=== PATIENT | female | born 1960 | race Two or more races ===

== ENCOUNTER → 2017-11-09 | Outpatient (CLI) | payer OTHER ==
--- NOTE | 2017-11-09 13:52 | MR ---
EXAMINATION TYPE: MR ankle LT wo/w con DATE OF EXAM: 11/09/2017 COMPARISON: NONE HISTORY: Left foot pain with focal mass. CONTRAST: Standard multiplanar, multisequence MRI departmental protocol utilizing 9 mL intravenous Gadavist larissa olinium contrast. Imaging is performed of the ankle without and with IV contrast. FINDINGS: A vitamin E marker is placed at area of clinical concern lateral aspect seen best coronal i mage 11. Just inferior to this level there are multifocal and multi septated thin-walled cystic lesio ns of T1 hypointensity and T2 hyperintensity without suspicious enhancement or nodularity extending u p to lateral base of fifth metatarsal at area of PVA tendon insertion. Largest measured lesion is 1.7 x 1.6 cm axial image 5. Smaller lesions are seen at level of capsule. I strongly favor benign etiolo gy such as synovial or ganglion cysts. There is low intense 5 mm lesion in the medial talar dome presumed benign coronal image 15. The ankle mortise symmetry is preserved. Normal sinus tarsi fat is noted. Hindfoot articulations are maintaine d. There is small superior and moderate size inferior calcaneal spurs. There is some intermediate signal seen in plantar fascia with mild subcutaneous edema inferiorly, correlate for plantar fasciitis. PL tendon show intermediate signal as crossover medially along plantar surface. Calcaneal level is no sukhdeep. There is surrounding fluid with some horizontal increased signal seen best coronal image 9. Susp ect partial tear/tendinosis. Other flexor tendons are intact. Extensor tendons anteriorly are intact. Anterior tibiofibular and an terior talofibular ligaments are intact. Medial deltoid ligament is intact. IMPRESSION: Multifocal multi septated thin-walled subcutaneous cysts felt to be benign favoring synovial or gangl ion cysts corresponding to level of palpable abnormality. Suspect tendinosis/partial tear of the PL t endon mid to distal aspects correlate clinically. Possible mild plantar fasciitis, correlate clinica lly.
== END ==
LOC: RADMRIMAIN 10:49
PROVIDERS: ATTEND Orthopaedic Surgery
DX: D36.7 Benign neoplasm of other specified sites (principal); M79.672 Pain in left foot
CPT/HCPCS: 82565; 73723; A9581

== ENCOUNTER 2017-12-21 11:22 | Day surgery (SDC) | payer OTHER ==
[2017-12-12 10:00] VITALS: BMI 30.4
[~2017-12-21 11:22] MED LIST: DEXAMETHASONE SOD PHOSPHATE 10 MG/ML 1 ML VIAL IV ONE; HYDROmorphone 0.5 MG/0.5 ML SYRINGE IVP PRN; LACTATED RINGERS 1,000 ML IV SCH; LIDOCAINE 1% 20 ML VIAL (10MG/ML) FOR IV START INTRADERMA PRN; MIDAZOLAM 2 MG/2 ML VIAL IV PRN; ONDANSETRON 4 MG/2 ML VIAL IVP ONE; Pre Op ABX Message 1 EACH MISC MISCELLANE ONE; SCOPOLAMINE 1.5MG/72HR PATCH TRANSDERM ONE
[2017-12-21] MEDS ORDERED: ONDANSETRON 4 MG/2 ML VIAL ONE (11:42)
[2017-12-21 11:54] VITALS: RESP 16
[2017-12-21] MEDS ORDERED: fentaNYL (PF) 50 MCG/ML 2 ML AMP ONE ×2 (12:11→14:41)
[2017-12-21] MEDS ORDERED: fentaNYL (PF) 50 MCG/ML 2 ML AMP IV ONE (12:14)
[2017-12-21] MEDS ORDERED: LIDOCAINE 1% INJ 10MG/ML (20 ML MDV) ONE (14:41)
[2017-12-21] MEDS ORDERED: MIDAZOLAM 2 MG/2 ML VIAL ONE (14:41)
[2017-12-21] MEDS ORDERED: PROPOFOL 10 MG/ML 20 ML VIAL IV ONE (14:41)
[2017-12-21] MEDS ORDERED: ceFAZolin 1,000 MG/50 ML BAG (PMX) IVPB ONE (14:45)
[2017-12-21] MEDS ORDERED: ceFAZolin 1,000 MG in SODIUM CHLORIDE 0.9% 1,000 ML IRRIGATION ONE (14:48)
[2017-12-21] MEDS ORDERED: BUPIVACAINE (PF) 0.5% 30 ML VIAL SQ ONE (15:22)
[2017-12-21 15:45] VITALS: TEMP 97.5
--- NOTE | 2017-12-21 15:47 | P.OP ---
Date of Procedure: 12/21/17 Preoperative Diagnosis: 1. Left foot ganglion cyst 2. Left intractable plantar fasciitis 3. Left gastrocnemius equinus contracture Postoperative Diagnosis: Same Procedure(s) Performed: 1. Left gastrocnemius recession 2. Left ganglion cyst excision Anesthesia: DOMONIQUE Surgeon: Brian Alarcon Operations Intern #1: Giovanna Guerra Estimated Blood Loss (ml): 10 IV fluids (ml): 600 Pathology: other (Ganglion cyst sent for pathology) Condition: stable Disposition: PACU Indications for Procedure: The patient is a previously healthy 57-year-old female who presented to my office with a left foot mass. The patient had an MRI which showed the mass was a ganglion cyst. I outlined different treatment options including observation, aspiration, and surgical excision. After our discussion the patient requested a surgical excision. We discussed potential risks and complications including but not limited to risk of anesthesia, risk of superficial infection, risk of deep infection, risk of delayed wound healing, risk of wound necrosis, risk of damage to local blood vessels or nerves, risk of recurrence of the cyst, risk of malignancy, risk of need for further surgery, risk of DVT, risk of PE, and possibly loss of life or limb. After being scheduled for her ganglion cyst removal the patient return to the office to discuss treatment of her plantar heel pain. Her physical exam was consistent with plantar fasciitis. Her MRI showed signs of plantar fasciitis. She had a gastroc equinus contracture with Silfverskiold testing. The patient stated that she had over 1 year of nonsurgical treatment with continued pain. She requested surgery. Since the patient states that she has had over 12 months of aggressive nonsurgical treatment I think it is reasonable to proceed with surgery. We discussed both a gastroc recession and plantar fascia release. After outlining the results in the literature the patient shows a gastrocnemius recession. I discussed the potential risks and complications of a gastroc recession including but not limited to risk of anesthesia, risk of superficial infection, risk of deep infection, risk of delayed wound healing, risk of damage to the sural nerve, risk of decreased calf circumference, risk of continued pain, risk of worsening pain, risk of generalized satisfaction of surgery, risk of need for further treatment, and possibly loss of life or limb. The patient voiced her understanding of these potential complications and provided her verbal and written consent to go forward with surgery. Description of Procedure: The patient was identified in preoperative holding and the correct left leg was marked with my initials. I reviewed the consent form with the patient and all of her questions were answered. The patient was then brought back to the operating room by anesthesia. She was positioned on able were general anesthetic and preoperative antibiotics were administered. A tourniquet was applied to the proximal aspect of the left leg. The right leg was secured to the table with foam and tape. The left leg was prepped and draped in the standard sterile fashion. A timeout was performed identifying the correct patient, operative extremity, and procedure. The patient's leg was then elevated, exsanguinated with an Esmarch bandage, and the tourniquet was inflated to 250 mmHg. I began by outlining an incision over the posterior medial calf 1 thumb breadth posterior to the tibia at the distal medial muscle belly of the gastrocnemius. Skin incision was made with a scalpel. Dissection was carried down carefully to the subcutaneous tissue with tenotomy scissors. The superficial fascia was incised longitudinally in line with the skin incision. I bluntly developed the interval between the gastrocnemius aponeurosis and superficial fascia. The sural nerve was seen to be adherent to the superficial fascia. I then bluntly developed an interval between the gastrocnemius aponeurosis and soleus fascia. Modified right angle retractors were placed isolating the gastrocnemius aponeurosis. The gastroc aponeurosis was then transected from medial to lateral in its entirety. After incising the gastrocnemius aponeurosis I verified the sural nerve was intact. I was able to passively dorsiflex the ankle past neutral. The wound was then irrigated and closed in layers. Attention was then turned to the dorsolateral foot. A longitudinal incision was marked out directly over the site of the ganglion cyst over the dorsolateral midfoot between the bases of the fourth and fifth metatarsal. Skin incision with a scalpel. Dissection was carried down carefully to the subcutaneous tissue with tenotomy scissors. The ganglion cyst was identified and dissected down to its stalk which appeared to emanate from the peroneal tendons or the calcaneocuboid joint. Once the origin of the cyst stalk was identified it was sharply released. The cyst was punctured and there was clear mucinous fluid consistent with a ganglion cyst. The lining of the cyst was handed off to the back table and sent in formalin to pathology. This wound was copiously irrigated and closed in layers. A sterile dressing consisting of Betadine soaked Adaptic, 4 x 4, and web roll was applied. The tourniquet was let down. I verified that all instrument, sponge, and sharp counts were correct. An Jero wrap was placed over the leg. The patient was placed in a tall boot. The patient was then transferred from the OR table to a gurney and brought back up out of the procedure well. Giovanna Guerra NP was required a skilled animal assistant for patient positioning, exposure, and wound closure.
[2017-12-21 16:30] VITALS: BP 131/74
[2017-12-21] MEDS ORDERED: HYDROcodone/APAP 5-325MG 1 EACH TAB PO ONE ×2 (16:40)
[2017-12-21 17:03] VITALS: PULSE 87
== END 2017-12-21 17:29 | disposition home or self-care (01) ==
LOC: OR 11:22 → EDSTATUS 12:30 → OR 17:29
PROVIDERS: ATTEND Orthopaedic Surgery
DX: M67.472 Ganglion, left ankle and foot (principal); M72.2 Plantar fascial fibromatosis; M62.462 Contracture of muscle, left lower leg; E03.9 Hypothyroidism, unspecified; R42 Dizziness and giddiness; J44.9 Chronic obstructive pulmonary disease, unspecified; K21.9 Gastro-esophageal reflux disease without esophagitis; G43.909 Migraine, unspecified, not intractable, without status migrainosus; Z79.82 Long term (current) use of aspirin; Z79.899 Other long term (current) drug therapy; Z79.1 Long term (current) use of non-steroidal anti-inflammatories (NSAID); Z79.51 Long term (current) use of inhaled steroids; Z79.891 Long term (current) use of opiate analgesic; Z87.891 Personal history of nicotine dependence
CPT/HCPCS: 27630; 27687; J2250; J1100; J2405; J0690 ×2; J2001; J3010; J2704; 88304

== ENCOUNTER 2018-07-27 14:00 | Emergency (ER) | payer OTHER ==
[2018-07-27 14:45] VITALS: BP 156/92; PULSE 83; RESP 18; TEMP 98.1
[2018-07-27] MEDS ORDERED: AMOXIC-POT CLAV 875-125MG 1 EACH TAB PO STA (15:04)
[2018-07-27] MEDS ORDERED: DIPH,PERTUS(ACELL)TETVAC-LF 0.5 ML VIAL IM ONE (15:04)
--- NOTE | 2018-07-27 15:56 | XR ---
EXAMINATION TYPE: XR finger RT DATE OF EXAM: 07/27/2018 COMPARISON: NONE HISTORY: 58-year-old female dogbite, rule out foreign body TECHNIQUE: 3 views coned on right fifth finger FINDINGS: Osteoarthritic versus posterior medical spurring at the DIP joints noted. Possible mallet finger here . No acute fracture. No retained radiopaque foreign body. IMPRESSION: Some apparent isolated flexion of the DIP joint. Correlate for possible old posttraumatic mallet fing er. No acute osseous abnormality or retained radiopaque foreign body seen.
--- NOTE | 2018-07-27 16:02 | ED ---
General Adult HPI - General Chief complaint: Animal Bite Stated complaint: Dog bite Time Seen by Provider: 07/27/18 14:48 Source: patient Mode of arrival: ambulatory Limitations: no limitations - History of Present Illness Initial comments: 58-year-old female presents to the emergency department minute for animal bite. Patient was bitten by a dog while at her work. Dog was obtaining vaccinations that day. Patient is not up-to-date on tetanus. She denies any other injuries. Patient states she does have the phone number of the family with the dog and can monitor the dog for any symptoms of rabies for the next 10 days. Patient has no other complaints at this time including shortness of breath , chest pain, abdominal pain, nausea or vomiting, headache, or visual changes. - Related Data Home Medications Medication Instructions Recorded Confirmed Aspirin [Adult Low Dose Aspirin EC] 81 mg PO DAILY 07/11/16 03/12/18 Montelukast [Singulair] 10 mg PO Q48H 07/11/16 03/12/18 Multivitamins, Thera [Multivitamin] 1 tab PO DAILY 07/11/16 03/12/18 PARoxetine HCL [Paxil] 40 mg PO DAILY 07/11/16 03/12/18 Pantoprazole [Protonix] 40 mg PO Q48H 07/11/16 03/12/18 Aspirin/Acetaminophen/Caffeine 1 each PO DIRECTED PRN 12/12/17 03/12/18 [Excedrin Migraine Caplet] Cholecalciferol [Vitamin D3] 1,000 unit PO DAILY 12/12/17 03/12/18 Ferrous Sulfate [Feosol] 325 mg PO DAILY 12/12/17 03/12/18 Glucosam/Kyle-Msm1/C/Joshua/Bosw 1 each PO DAILY 12/12/17 03/12/18 [Glucosamine-Chondroitin Tablet] Naproxen Sodium 220 mg PO BID 12/12/17 03/12/18 hydrOXYzine HCL 12.5 mg PO BID PRN 12/12/17 03/12/18 Previous Rx's Medication Instructions Recorded Amoxicillin/Potassium Clav 1 tab PO Q12HR #20 tab 07/27/18 [Augmentin 875-125 Tablet] Allergies Allergy/AdvReac Type Severity Reaction Status Date / Time No Known Allergies Allergy Verified 07/27/18 16:05 Review of Systems ROS Statement: Those systems with pertinent positive or pertinent negative responses have been documented in the HPI. ROS Other: All systems not noted in ROS Statement are negative. Past Medical History Past Medical History: Asthma, COPD, GERD/Reflux, Skin Disorder, Thyroid Disorder Additional Past Medical History / Comment(s): current wound left inner lower leg -not healing since plantar fasciitis surgery December,migraines, itching- unknown cause, "precancer cells iin vulva", knee brace rt knee, planter faciitis , has boot on left foot-does get swelling by end of the day History of Any Multi-Drug Resistant Organisms: None Reported Past Surgical History: Hysterectomy, Orthopedic Surgery, Tonsillectomy Additional Past Surgical History / Comment(s): plantar fasciitis left foot December [facility]-mult sx for hammertoes, rt knee arthroscopy Past Anesthesia/Blood Transfusion Reactions: Motion Sickness Additional Past Anesthesia/Blood Transfusion Reaction / Comment(s): ONE TIME POST OP STATES " I WAS DEPRESSED FOR SEVERAL DAYS" Past Psychological History: No Psychological Hx Reported Smoking Status: Former smoker Past Alcohol Use History: Occasional Past Drug Use History: None Reported - Past Family History Father Family Medical History: Cancer, Dementia Additional Family Medical History / Comment(s): LUNG Mother Family Medical History: CVA/TIA General Exam Limitations: no limitations General appearance: alert, in no apparent distress Head exam: Present: atraumatic, normocephalic, normal inspection Eye exam: Present: normal appearance, PERRL, EOMI. Absent: scleral icterus, conjunctival injection, periorbital swelling ENT exam: Present: normal exam, mucous membranes moist Neck exam: Present: normal inspection, full ROM. Absent: tenderness, meningismus, lymphadenopathy Respiratory exam: Present: normal lung sounds bilaterally. Absent: respiratory distress, wheezes, rales, rhonchi, stridor Cardiovascular Exam: Present: regular rate, normal rhythm, normal heart sounds. Absent: systolic murmur, diastolic murmur, rubs, gallop, clicks Extremities exam: Present: full ROM (Full range of motion of the right fifth digit), normal capillary refill (Refill less than 2 seconds in the right fifth digit, radial pulse 2+), other (Patient does have a 0.5 cm laceration noted to the right fifth digit middle phalanx radial aspect. Superficial, no evidence of foreign bodies, no evidence of deep structure injury.) Neurological exam: Present: alert, oriented X3, CN II-XII intact Psychiatric exam: Present: normal affect, normal mood Course Vital Signs 07/27/18 14:42 Temperature 98.1 F Pulse Rate 83 Respiratory 18 Rate Blood Pressure 156/92 O2 Sat by Pulse 96 Oximetry Medical Decision Making - Medical Decision Making 58-year-old female presents to the emergency determine for a chief complaint of dog bite. This occurred about one hour prior to arrival. It is 0.5 cm on the middle phalanx of the right fifth finger. This was soaked and cleaned thoroughly. This was not sutured to allow for any drainage if infection occurs. X-ray of the right fifth digit shows no acute osseous abnormality or retained foreign body. Patient was given Augmentin and tetanus shot. A dog can be monitored for the next 10 days and has been up-to-date on rabies until he was due for shots today. Discussed monitoring for signs of infection and returning if these occur. Discussed following up with primary care in 1-2 days for a wound recheck. Disposition Clinical Impression: Dog bite Disposition: HOME SELF-CARE Condition: Good Instructions: Animal Bite (ED) Additional Instructions: Please take Augmentin as directed. Please follow-up with primary care in 1-2 days. Return if you have any worsening symptoms. Prescriptions: Amoxicillin/Potassium Clav [Augmentin 875-125 Tablet] 1 tab PO Q12HR #20 tab Is patient prescribed a controlled substance at d/c from ED?: No Referrals: Diana Rashid MD [Primary Care Provider] - 1-2 days Time of Disposition: 16:02
== END 2018-07-27 16:20 | disposition home or self-care (01) ==
LOC: EC 14:00
DX: S61.216A Laceration without foreign body of right little finger without damage to nail, initial encounter (principal); Z23 Encounter for immunization; J44.9 Chronic obstructive pulmonary disease, unspecified; K21.9 Gastro-esophageal reflux disease without esophagitis; Z79.82 Long term (current) use of aspirin; Z79.899 Other long term (current) drug therapy; Z79.1 Long term (current) use of non-steroidal anti-inflammatories (NSAID); Z87.891 Personal history of nicotine dependence; W54.0XXA Bitten by dog, initial encounter; Y92.69 Other specified industrial and construction area as the place of occurrence of the external cause; Y99.0 Civilian activity done for income or pay
CPT/HCPCS: 90471; 90715; 99283

== ENCOUNTER → 2019-04-07 | Outpatient (CLI) | payer OTHER ==
--- NOTE | 2019-04-07 14:25 | CT ---
EXAMINATION TYPE: CT wrist LT wo con DATE OF EXAM: 04/07/2019 COMPARISON: None HISTORY: 59-year-old female Fracture left radius. TECHNIQUE: Contiguous axial scanning of the left wrist without IV contrast. Coronal and sagittal marcela nstructions performed. CT DLP: 94.5 mGycm Automated exposure control for dose reduction was used. FINDINGS: There is a comminuted, impacted fracture of the distal radial metaphysis and epiphysis. Multiple frac ture lines extend to the radiocarpal articular surface. Additional fracture lines extend to the dista l radioulnar joint. There is reinier disruption of the mid articular surface of the radius measuring 1.3 cm wide and 8 mm A P. Comminution involves Quita's tubercle as well. There is overall 6 mm of dorsal displacement and 5 mm impaction. Additional nondisplaced fracture of the dorsal triquetrum. Transverse fracture through the base of the ulnar styloid process. 5 mm corticated ossific density ju st beyond the ulnar styloid process could represent an accessory ossicle. Hemorrhage and extensive soft tissue swelling related to the fractures. Overlying plaster cast. IMPRESSION: 1. MARKEDLY COMMINUTED FRACTURE OF THE DISTAL RADIAL METAPHYSIS AND EPIPHYSIS. THERE IS IMPACTION OF 5 MM AND OVERALL DORSAL DISPLACEMENT OF 6 MM. MULTIPLE FRACTURE LINES EXTEND INTO THE RADIOCARPAL ART ICULAR SURFACE. ADDITIONAL FRACTURE EXTENSION INTO THE DISTAL RADIOULNAR JOINT. 2. REINIER DISRUPTION OF THE MID RADIAL ARTICULAR SURFACE MEASURING UP TO 1.3 CM WIDE AND 8 MM AP. 3. NONDISPLACED FRACTURE OF THE DORSAL TRIQUETRUM AND TRANSVERSE FRACTURE THROUGH THE BASE OF THE ULN AR STYLOID PROCESS.
== END | disposition home or self-care (01) ==
LOC: RADCTMAIN 13:28
PROVIDERS: ATTEND Orthopaedic Surgery
DX: S52.615A Nondisplaced fracture of left ulna styloid process, initial encounter for closed fracture (principal); S52.502A Unspecified fracture of the lower end of left radius, initial encounter for closed fracture

== ENCOUNTER 2019-04-08 06:59 | Day surgery (SDC) | payer OTHER ==
[2019-04-03 14:18] VITALS: BMI 28.8
[~2019-04-08 06:59] MED LIST changes: -HYDROmorphone 0.5 MG/0.5 ML SYRINGE IVP PRN; +KETOROLAC 30 MG/ML 1 ML VIAL IVP SCH; +METOCLOPRAMIDE 5 MG/ML 2 ML VIAL IVP PRN; -MIDAZOLAM 2 MG/2 ML VIAL IV PRN; -Pre Op ABX Message 1 EACH MISC MISCELLANE ONE; -SCOPOLAMINE 1.5MG/72HR PATCH TRANSDERM ONE
[2019-04-08] MEDS ORDERED: HYDROmorphone (PF) 1 MG/ML ONE (08:33)
[2019-04-08] MEDS ORDERED: MIDAZOLAM 2 MG/2 ML VIAL ONE (08:33)
[2019-04-08] MEDS ORDERED: PROPOFOL 10 MG/ML 20 ML VIAL IV ONE (08:33)
[2019-04-08] MEDS ORDERED: LIDOCAINE 1% INJ 10MG/ML (20 ML MDV) ONE (08:33)
[2019-04-08] MEDS ORDERED: fentaNYL (PF) 50 MCG/ML 2 ML AMP ONE (08:33)
[2019-04-08] MEDS ORDERED: LACTATED RINGERS 1,000 ML IV ONE ×2 (09:02→09:08)
[2019-04-08] MEDS ORDERED: BUPIVACAINE (PF) 0.5% 30 ML VIAL SQ ONE (11:29)
[2019-04-08] MEDS ORDERED: LIDOCAINE 1%-EPI 1:100,000 20 ML VIAL SQ ONE (11:29)
[2019-04-08] MEDS: HYDROmorphone 0.5 MG/0.5 ML SYRINGE IVP PRN ×4 (12:18→12:41)
[2019-04-08] MEDS ORDERED: ONDANSETRON 4 MG/2 ML VIAL IVP ONE (12:46)
[2019-04-08 14:07] VITALS: TEMP 97.3
--- NOTE | 2019-04-08 14:07 | P.ANPRN ---
Procedure Note - Anesthesia - Nerve Block Performed Left Supraclavicular Date of Procedure: 04/08/19 Procedure Start Time: 13:01 Procedure Stop Time: 13:07 Location of Patient Procedure: PACU Indication: Acute Post-Operative Pain Sedation Type: Sedate with meaningful contact maintained Position: Supine Catheter: None Needle Types: Pajunk Needle Gauge: 21 Ultrasound used to visualize needle placement: Yes Ultrasound used to observe medication spread: Yes Injectate: 0.5% Ropivacaine (see comment for volume) Narrative: 20 cc of .5 ropi and 4 mg of dexamethasone Blood Aspirated: No Pain Paresthesia on Injection Noted: No Resistance on Injection: Normal Image Stored and Saved: Yes Events: Uneventful and Well Tolerated
--- NOTE | 2019-04-08 14:20 | FL ---
EXAMINATION TYPE: FL guidance operating room, XR wrist limited LT DATE OF EXAM: 04/08/2019 COMPARISON: NONE HISTORY: 59-year-old female left radius ORIF FINDINGS: 4 intraoperative images during cutaneous pinning of a comminuted distal radial metaphyseal and epiphy seal fracture. FLUOROSCOPY Fluoroscopy time of 1 minute 51 seconds was used during distal radial percutaneous pinning. 4 image/ s document/s the procedure. IMPRESSION: Intraoperative fluoroscopy as above.
[2019-04-08 14:56] VITALS: BP 130/82; PULSE 82; RESP 18
--- NOTE | 2019-04-13 12:51 | P.OP ---
Date of Procedure: 04/08/19 Preoperative Diagnosis: 1. Displaced, comminuted intra-articular left distal radius fracture involving the radiocarpal and distal radioulnar joints 2. Nondisplaced left triquetrum fracture Postoperative Diagnosis: 1. Displaced, comminuted intra-articular left distal radius fracture involving the radiocarpal and distal radioulnar joints 2. Nondisplaced left triquetrum fracture Procedure(s) Performed: 1. Open reduction and internal fixation of comminuted intra-articular left distal radius fracture with application of external fixator 2. Application of long-arm sugartong splint by physician Implants: Acumed Stableloc external fixator; 0.054 and 0.045 K-wires Anesthesia: PROA, local Surgeon: Tha [place] [employer] Inspector Tester #1: Giovanna Guerra Estimated Blood Loss (ml): 5 Condition: stable Disposition: PACU Indications for Procedure: The patient is a pleasant 59-year-old female who sustained a displaced intra- articular left distal radius fracture after missing the last rung when coming down off a ladder at work. A CT scan was performed, demonstrating significant comminution and multiple fracture fragments. Treatment options (and associated risks and benefits) were discussed in the office and surgical treatment was recommended. In preop, the patient denied any additional questions or concerns and wished to proceed with surgery. Consent forms were signed. The operative site was confirmed and marked. Description of Procedure: The patient was brought to the operating suite and positioned supine with the operative limb on an arm board. All bony prominences were well-padded. General anesthesia was administered uneventfully. Prophylactic IV antibiotics were administered. A tourniquet was placed on the operative arm which was then prepped and draped in standard, sterile fashion. A timeout was performed, confirming patient identifiers, the operative side, the site and the procedure to be performed: all team members expressed agreement. The limb was exsanguinated with an Esmarch and the tourniquet was inflated. The fracture was visualized from various views using intraoperative fluoroscopy. Multiple fracture fragments were identified with loss of radial height and articular incongruity. Manual reduction was performed using a combination of axial traction, ulnar deviation and palmar translation: Improved alignment was achieved. The decision was made to proceed with application of the external fixator. Two small incisions were marked on the radial aspect of the second metacarpal. The skin was sharply incised and spreading dissection was used to expose the bone. A superficial sensory nerve branch was identified, mobilized and protected. Starting points were confirmed on imaging. A 2.5 mm engine pilot drill was used and two 3.2 mm Schanz screws were inserted through the soft tissue guide. The starting point for the proximal pins was identified and confirmed on imaging. Two small longitudinal incisions were made. The subcutaneous tissues were bluntly spread to expose the interval between the extensor carpi radialis longus and brachioradialis. Branches of the superficial radial sensory nerve were identified and protected. Once the radial shaft was exposed, two 3.2 mm Schanz screws were drilled and inserted in similar fashion as the distal screws. The fixator was applied with the set screws loose. The ball joint was aligned with the center of rotation of the wrist. The reduction maneuver was repeated and the clamps were tightened. Axial ligamentotaxis , flexion/extension and radioulnar deviation were sequentially adjusted to optimize fracture alignment and reduction. When attempting to loosen the distal pin clamp to adjust its position, the head of the hex sales driver broke off in the screw. The distal clamp was still firmly fixed to the Schanz screws and this was left in place. Imaging showed persistent articular incongruity and depression of the intermediate column. The decision was made to proceed with open reduction. A longitudinal dorsal incision was marked just ulnar to Quita's tubercle. The skin was sharply incised and full-thickness skin flaps were elevated. The EPL tendon was identified and released. The fourth dorsal compartment was subpe riosteally elevated off the dorsal metaphysis. The fracture site was identified. There was significant comminution of the entire dorsal rim and distal metaphysis, particularly the lunate fossa, as well as the metaphysis below the sigmoid notch. These were not felt to be amenable to plate and screw fixation. A small arthrotomy was created and a [place] elevator was inserted to manipulate and reduce the central articular fragments. A large metaphyseal fragment below the sigmoid notch showed residual displacement. This fragment was also quite comminuted. Attempts to secure this with a reduction clamp caused displacement and malreduction. The fracture fragment was manually reduced and held with a dental pick. A 0.054 K wire was introduced percutaneously into the ulnar head and driven across the fracture fragment. Good provisional alignment was maintained. A [place] was inserted between the fracture fragments to elevate the depressed articular surface and a 0.045 K wire was inserted through the ulnar head and into the radius, serving as a rafting pin to support the articular surface. Final x-rays were obtained which showed improved radial height and inclination. There was good overall contour to the articular surface without significant step-off or widening. The DRUJ was well-aligned on all views The fracture and fixation construct was then stressed under live fluoroscopy - the wrist showed good clinical stability and no gross motion of the fracture fragments was appreciated. The triquetral fracture appeared well-aligned and no further fixation was deemed necessary. The tourniquet was released after 119 minutes at 250 mmHg. Hemostasis was obtained with electrocautery and held pressure. The wound was thoroughly irrigated with normal saline. The extensor retinaculum was repaired with 0 Vicryl sutures with the EPL left superficial. The subcutaneous tissues were reapproximated with interrupted 3-0 Vicryl suture. The incision was closed with interrupted 4-0 nylon suture. The K wires were cut and covered with Jurgan balls. All remaining set screws in the ex-fix were retightened. Local anesthetic with epinephrine was injected into the perioperative subcutaneous tissues for adjunctive postoperative pain control and hemostasis. A sterile dressing was applied followed by a sugartong splint to protect the comminuted intermediate column/DRUJ from rotational stress. All sponge, needle and instrument counts were correct at the end of the case. The patient tolerated the procedure well and was taken to the recovery room in stable condition.
== END 2019-04-08 14:57 | disposition home or self-care (01) ==
LOC: OR 06:59
PROVIDERS: ATTEND Orthopaedic Surgery
DX: S52.572A Other intraarticular fracture of lower end of left radius, initial encounter for closed fracture (principal); S62.115A Nondisplaced fracture of triquetrum [cuneiform] bone, left wrist, initial encounter for closed fracture; E03.9 Hypothyroidism, unspecified; K21.9 Gastro-esophageal reflux disease without esophagitis; J44.9 Chronic obstructive pulmonary disease, unspecified; Z78.0 Asymptomatic menopausal state; Z79.899 Other long term (current) drug therapy; Z90.710 Acquired absence of both cervix and uterus; Z97.3 Presence of spectacles and contact lenses; Z98.890 Other specified postprocedural states; Z87.891 Personal history of nicotine dependence; Z90.89 Acquired absence of other organs; Z82.49 Family history of ischemic heart disease and other diseases of the circulatory system; Y99.0 Civilian activity done for income or pay; W11.XXXA Fall on and from ladder, initial encounter
CPT/HCPCS: 64415; 73100; 25608; 20690; C1713; J2250; J1100; J0690; J2405; J2001; J3010; J1170 ×2; J2704

== ENCOUNTER → 2019-04-23 | Outpatient (CLI) | payer OTHER | END | disposition home or self-care (01) | LOC: LABWHC1 13:49 | PROVIDERS: ATTEND Orthopaedic Surgery | DX: Z48.89 Encounter for other specified surgical aftercare (principal); S52.572D Other intraarticular fracture of lower end of left radius, subsequent encounter for closed fracture with routine healing; S62.115D Nondisplaced fracture of triquetrum [cuneiform] bone, left wrist, subsequent encounter for fracture with routine healing; M25.532 Pain in left wrist | CPT/HCPCS: 36415; 82306 ==

== ENCOUNTER → 2020-02-09 | Outpatient (CLI) | payer OTHER ==
[2020-02-09 10:07] LABS: Appearance,Urine Clear (Clear); Bilirubin,Urine Negative (Negative); Blood,Urine Negative (Negative); Color,Urine Colorless; Glucose,Urine (UA) Negative (Negative); Ketones,Urine Negative (Negative); Leukocyte Esterase,Urine Negative (Negative); Nitrite,Urine Negative (Negative); PH, Urine 5.5 (5.0-8.0); Protein,Urine Negative (Negative); Specific Gravity,Urine 1.001 (1.001-1.035); Urobilinogen,Urine <2.0 mg/dL (<2.0)
[2020-02-09 10:13] LABS: INR 0.9 (<1.2); Partial Thromboplastin Time 23.8 sec (22.0-30.0); Prothrombin Time 9.6 sec (9.0-12.0)
== END | disposition home or self-care (01) ==
LOC: LABPAT 09:26
PROVIDERS: ATTEND Orthopaedic Surgery Sports Medicine
DX: Z01.818 Encounter for other preprocedural examination (principal); M17.11 Unilateral primary osteoarthritis, right knee
CPT/HCPCS: 81003; 85610; 85730

== ENCOUNTER 2020-02-12 09:52 | Day surgery (SDC) | payer OTHER ==
[2020-02-06 15:39] VITALS: BMI 28.1
[~2020-02-12 09:52] MED LIST changes: +ACETAMINOPHEN TAB 500 MG TAB PO ONE; -DEXAMETHASONE SOD PHOSPHATE 10 MG/ML 1 ML VIAL IV ONE; +GABAPENTIN 300 MG CAP PO ONE; -KETOROLAC 30 MG/ML 1 ML VIAL IVP SCH; -LACTATED RINGERS 1,000 ML IV SCH; -LIDOCAINE 1% 20 ML VIAL (10MG/ML) FOR IV START INTRADERMA PRN; +MELOXICAM 7.5 MG TAB PO ONE; -METOCLOPRAMIDE 5 MG/ML 2 ML VIAL IVP PRN; +ONDANSETRON 4 MG/2 ML VIAL IVP PRN; +TRANEXAMIC ACID 1,000 MG in SODIUM CHLORIDE 0.9% 100 ML IVPB ONE
[2020-02-12] MEDS ORDERED: ACETAMINOPHEN TAB 500 MG TAB ONE (10:25)
[2020-02-12] MEDS ORDERED: ONDANSETRON 4 MG/2 ML VIAL ONE (10:25)
[2020-02-12] MEDS ORDERED: DEXAMETHASONE SOD PHOSPHATE 10 MG/ML 1 ML VIAL IV ONE (10:40)
[2020-02-12] MEDS: LACTATED RINGERS 1,000 ML IV SCH ×4 (10:53→22:58)
[2020-02-12] MEDS ORDERED: MIDAZOLAM 2 MG/2 ML VIAL IVP ONE (10:57)
[2020-02-12] MEDS ORDERED: ACETAMINOPHEN TAB 325 MG TAB PO PRN (11:45)
[2020-02-12] MEDS ORDERED: ONDANSETRON 4 MG/2 ML VIAL IVP PRN (11:45)
[2020-02-12] MEDS ORDERED: diazePAM 5 MG TAB PO PRN (11:45)
[2020-02-12] MEDS ORDERED: HYDROmorphone 1 MG/ML 1 ML SYRINGE IVP PRN (11:45)
[2020-02-12] MEDS ORDERED: traMADol 50 MG TAB PO PRN (11:45)
[2020-02-12] MEDS ORDERED: NA PHOS,M-B/NA PHOS,DI-BA 133 ML ENEMA RECTAL PRN (11:45)
[2020-02-12] MEDS ORDERED: HYDROcodone/APAP 5-325MG 1 EACH TAB PO PRN (11:45)
[2020-02-12] MEDS ORDERED: MAGNESIUM HYDROXIDE 2,400 MG/10 ML CUP PO PRN (11:45)
[2020-02-12] MEDS ORDERED: TEMAZEPAM 15 MG CAP PO PRN (11:45)
[2020-02-12] MEDS ORDERED: HYDROmorphone 0.5 MG/0.5 ML SYRINGE IVP PRN ×2 (11:45)
[2020-02-12] MEDS ORDERED: NALOXONE 0.4 MG/ML 1 ML VIAL IV PRN (11:45)
[2020-02-12] MEDS ORDERED: bisacodyL 10 MG SUPP RECTAL PRN (11:45)
[2020-02-12] MEDS ORDERED: MIDAZOLAM 2 MG/2 ML VIAL ONE (11:48)
[2020-02-12] MEDS ORDERED: fentaNYL (PF) 50 MCG/ML 2 ML AMP ONE (11:48)
[2020-02-12] MEDS ORDERED: PROPOFOL 10 MG/ML 20 ML VIAL IV ONE (11:48)
[2020-02-12] MEDS ORDERED: SODIUM CHLORIDE 0.9% 100 ML BAG ONE (11:48)
[2020-02-12] MEDS ORDERED: TRANEXAMIC ACID 1,000 MG/10 ML VIAL ONE (11:48)
[2020-02-12] MEDS: ceFAZolin 3,000 MG in SODIUM CHLORIDE 0.9% IRRIGATIO 3,000 ML IRRIGATION ONE ×2 (11:56→16:40)
[2020-02-12] MEDS: ROPIVACAINE 246.25 MG, EPINEPHrine 0.5 MG, KETOROLAC 30 MG, cloNIDine HCL/PF 80 MCG, WA... MISCELLANE ONE ×10 (12:19→12:58)
[2020-02-12] MEDS ORDERED: LACTATED RINGERS 1,000 ML IV ONE (13:00)
[2020-02-12] MEDS ORDERED: ROPIVACAINE 0.2%-NS ON-Q PUMP 1,090 MG, EMPTY PAIN BALL 1 EACH MISCELLANE PRN (13:20)
--- NOTE | 2020-02-12 13:21 | P.ANPRN ---
Procedure Note - Anesthesia - Nerve Block Performed Right Adductor Canal Infusion Time Out Performed: Yes Date of Procedure: 02/12/20 Location of Patient: PreOp Indication: Acute Post-Operative Pain, Requested by Surgeon Sedation Type: Sedate with meaningful contact maintained Preparation: Sterile Prep, Sterile Dressing Position: Supine Catheter: Indwelling Needle Types: Pajunk Needle Gauge: 21 Ultrasound used to visualize needle placement: Yes Ultrasound used to observe medication spread: Yes Blood Aspirated: No Pain Paresthesia on Injection Noted: No Resistance on Injection: Normal Image Stored and Saved: Yes Events: Uneventful and Well Tolerated (ropi .5% 20CC PLUS DEXAMETHASONE 4MG)
--- NOTE | 2020-02-12 14:35 | XR ---
EXAMINATION TYPE: XR knee limited RT DATE OF EXAM: 02/12/2020 COMPARISON: NONE TECHNIQUE: Two views submitted HISTORY: Post op FINDINGS: There is a prosthetic knee in near anatomic alignment. There is soft tissue edema and emphysema. IMPRESSION: 1. Postoperative change. Appears in near-anatomic alignment
[2020-02-12] MEDS: MAGNESIUM OXIDE 400 MG TAB PO SCH (21:06)
[2020-02-12] MEDS: ASPIRIN 81 MG PO SCH (21:06)
[2020-02-12] MEDS: SENNOSIDES-DOCUSATE SODIUM 1 EACH TAB PO SCH (21:06)
[2020-02-12] MEDS: HYDROcodone/APAP 10-325MG 1 EACH TAB PO PRN (23:15)
--- NOTE | 2020-02-13 01:42 | OP ---
OPERATIVE REPORT DATE OF PROCEDURE: 02/12/2020 SURGEON: Ted Lechuga MD. SUPERVISOR EVAPORATOR: Ruben GOODWIN. PREOPERATIVE DIAGNOSIS: Right knee osteoarthrosis. POSTOPERATIVE DIAGNOSIS: Right knee osteoarthrosis. OPERATION: Right total knee arthroplasty. ANESTHESIA: Spinal with sedation. ESTIMATED BLOOD LOSS: 100 mL. TOURNIQUET TIME: 46 minutes at 250 mmHg. COMPLICATIONS: None apparent. DRAINS: None. DISPOSITION: Postanesthesia care unit. INDICATIONS: Felisha is a 60-year-old female with longstanding history of right knee pain. History and physical examination are consistent with advanced right knee osteoarthrosis. She has been through significant nonoperative management up to this point. Further treatment options were discussed and she decided to go for the right total knee arthroplasty. The risks of procedure were discussed with her in detail. These risks include, but are not limited to risk of infection, nerve damage, bleeding, pain, and a small risk of deep vein thrombosis which could lead to fatal pulmonary embolism. There is also risk of loosening of the implant which could require revision operation. The patient understands these risks. All of her questions were answered to her satisfaction. Appropriate informed consent was obtained. DESCRIPTION OF THE PROCEDURE: The patient identified in preop holding area. Surgical site was marked by both the patient and myself. She was given 2 grams of Ancef IV for prophylactic purposes. She was then transferred to the operative suite. She was placed supine on the operating room table. Spinal anesthetic was then administered and dosed per the anesthesia department without apparent complication. Examination under anesthesia was then performed. The patient was 2-3 degrees shy of full extension. She had 100 degrees of flexion. The medial collateral ligament, lateral collateral ligament and posterior cruciate ligaments were stable. Tourniquet was then placed high on the right upper thigh well-padded in preparation for surgery. The patient's right lower extremity was than prepped and draped in usual sterile fashion. Standard surgical pause undertaken to ensure that we were operating the correct site and that appropriate preoperative antibiotics had been given. All staff in the room were in agreement and we proceeded. The outlines of the patella were marked surgical pen. A planned 12 cm vertical incision centered over the patella was marked with surgical pen. The leg was then exsanguinated with an Esmarch dressing. The knee was then flexed and the tourniquet was inflated to 250 mmHg. The total tourniquet time for the procedure was 46 minutes Incision was then made with a 10-blade scalpel. Dissection was carried down sharply overlying fascia. Great care was taken to minimize the skin flaps. The knee was then exposed using a standard medial parapatellar approach. A small cuff of quadriceps tendon was then left for suturing. She was in a bit of valgus preoperatively. A very minimal medial release was made. This was done just enough to place the retractors medially to protect the medial collateral ligament. The medial meniscus was then excised as well. The lateral meniscus was also released anteriorly. The leg was then externally rotated. Patella was everted. The knee was flexed. The retractors were then placed to protect the collateral ligaments. I then proceeded to remove the infrapatellar fat pad. This was excised sharply tangentially with fibers of the patellar tendon. I then proceeded to remove peripheral osteophytes. This was done with a rongeur. I then proceeded with the distal femoral resection. She did have near full extension. A planned 9 mm resection was then done. The femoral canal was then entered in the midline of the femur approximately 10 mm anterior to the origin of the posterior cruciate ligament. The debra was then advanced down the center of the femur and placed intramedullary. Based on the preoperative radiographs, the angle between the anatomic and mechanical axis of the femur was approximately 4 to 5 degrees. The valgus angle of this femoral cutting guide was then set at 4 degrees for the right knee. This femoral cutting guide was then advanced over the intramedullary debra. This was seated firmly against the femur. I then as mentioned planned to take 9 mm off the distal femur. The cutting block was then secured onto the femur with pins. The jig was removed. The distal femoral cut was made through the slot of the block. The pins were then removed. The distal femoral cutting block was removed. The accuracy of the distal femoral cuts was checked with 2 flat bars. I then proceeded with femoral sizing. Posterior referencing sizing guide was held firmly against the resected distal surface of the femur. The posterior condyles were resting on the posterior plane of the guide. The sizing stylus was then placed onto the anterior femur. The size was measured as a size 9. I then assessed for femoral rotation. The plan was for 3 degrees of external rotation. Three degrees of external rotation was placed onto the jig. These holes were then marked. I then confirmed the rotation by 3 separate methods. This was done using epicondylar axis as well as Whitesides line and posterior referencing. It was deemed that the external rotation was proper. I then went forward with placing the femoral cutting block. This was placed over the previously placed pin holes. The Francois wing was then placed on the anterior slots to ensure there would not notch the anterior femur with the anterior femoral cut. I then proceeded with the anterior femoral cut. This was flush with the anterior cortex of the femur. The posterior cuts were then made followed by the anterior chamfer cut, then the posterior chamfer cut. The cutting block was then removed. Throughout the resection, the collateral ligaments were protected with retractors. I then placed a trial size 9 femur. It was slightly wide mediolateral but the narrow fit nicely and it fit flush with the distal end of the femur. The drill holes were then made. I then proceeded with the tibial cut. I planned for cruciate-retaining knee. The guide was placed and set for varus valgus and for slope. The height set for approximate 2 mm resection from the medial tibial plateau which was the lower side. I was happy with the alignment amount of resection. The cutting block was then pinned to the proximal tibia. The alignment debra was removed. Proximal tibia was resected with the reciprocating saw. Again, this was done with retractors protecting the collateral ligaments as well as the posterior cruciate ligament. I then proceeded to evaluate the flexion and extension gaps. A 10 mm block was then placed. The flexion and extension gaps were equal. I then proceeded with resection of posterior osteophytes. She had very minimal posterior osteophytes. This was done using a curved osteotome. We resected the posterior osteophytes and posterior capsule stripping was done off the posterior aspect of the femur at this time. The osteophytes were then removed. I then proceeded with resection of the patella. The thickness of the patella was measured using the caliper. The thickness was 22 mm. The thickness of the anticipated patellar dome was taken into account. Resection was then performed and confirmed to be equal in 4 quadrants using a caliper. Approximately 14 mm of bone remained after resection. A 29 x 8 standard patellar trial was then placed. The holes were drilled. The trial was then placed. I then proceeded with sizing tibial plate. A size D tibial plate fit very nicely. I then placed the trial femur, the tibial tray and patellar button. A 10 mm trial tibial insert was also placed. The components fit very nicely. She had full extension and flexion. The extension and flexion gaps were equal and stable to both varus and valgus stress. The patella tracked appropriately. Tibial tray rotation was marked with a Bovie. This was externally rotated properly. I then proceeded with tibial preparation. I first drilled the femoral holes removed femoral component. The tibial tray was then set for proper external rotation as well as mediolateral placement onto the tibia. It was then pinned into place. I then proceeded with punching the keel. I then decided to proceed with cementing of all of our components. The knee was thoroughly irrigated with sterile saline solution via pulse lavage. The lateral geniculate artery was identified and cauterized. All blood was removed from the bone of the tibia, femur and patella with pulse lavage. I then proceeded with cementing. Two packs of antibiotic bone cement prepared on the back table by the surgical clinical reviewer. I then proceeded with cementing of the tibia first. The cement was impacted into the keel as well as deeply seated in the bone. A second coat of cement was then placed. The tibia was then impacted into place. Excess cement was removed with Vance's and Jokers. I then proceed with cementing of the femoral component. The femoral component was also cemented using sterile technique. Excess cement was removed. A 10 mm trial insert was then placed into the knee. It was brought into full extension with a constant axial load placed until the cement had hardened. The patellar component was then cemented. This held firmly with a compressive device until the cement had dried. When the cement had dried, the knee was taken out of extension. All excess cement was removed from around the prosthesis. I then trialed the knee with a 10 mm insert. Flexion and extension gaps were appropriate. The knee was stable. It came into full extension. I decided to go forward with a 10 mm medial congruent cross-linked cruciate- retaining tibial insert. Polyethylene was then placed on the tibial tray and locked into place. The knee was then reduced. The knee was again further irrigated with sterile saline solution with antibiotic added. The tourniquet was then deflated. Total tourniquet time for the procedure was 46 minutes at 250 mmHg. Final components were Presley Persona size 9 narrow cruciate-retaining femoral component, a size D tibial tray, a 10 mm medial congruent cruciate-retaining polyethylene insert, and a 29 x 8 patella. I then proceeded with closure. Again, the knee was thoroughly irrigated. The quadriceps tendon and the medial retinaculum were reapproximated with #2 Ethibond suture. The extensor mechanism was then closed with a running #2 Quill suture. Subcutaneous tissues were closed with 2-0 Vicryl interrupted suture. The skin was closed with a running 3-0 Quill suture. Dermabond applied to the incision. Sterile compressive dressings were applied. All sponge and needle counts were deemed correct prior to closure. The patient tolerated procedure without apparent complication. She was transferred to recovery room in stable condition. MMODL / IJN: [id number] /
--- NOTE | 2020-02-13 03:36 | CONS ---
CONSULTATION REASON FOR CONSULTATION: Advice regarding asthma, COPD and other multiple medical issues requested by Dr. Lechuga. HISTORY OF PRESENT ILLNESS: This 60-year-old woman with a past medical history of asthma, COPD, GERD, history of hysterectomy, being followed by Dr. Diana Rashid in the outpatient setting underwent right total knee arthroplasty. The patient is being closely monitored. There is no history of chest pain, palpitations, shortness of breath, hematochezia or melena at this time. PAST MEDICAL HISTORY: Asthma, COPD, GERD, DJD, hypothyroidism, itching with unknown cause. MEDICATIONS: Home medications are: Glucosamine chondroitin, iron sulfate, Echinacea, vitamin B12, Aleve, multivitamins, magnesium oxide, ergocalciferol, ascorbic acid, pantoprazole, and Lexapro. ALLERGIES: None. FAMILY HISTORY: History of lung cancer and dementia. SOCIAL HISTORY: History of alcohol. Previous history of smoking. REVIEW OF SYSTEMS: ENT: No diminished hearing or diminished vision. CARDIOVASCULAR SYSTEM: No angina. RESPIRATORY SYSTEM: No cough or hemoptysis. GI: No nausea or vomiting. : No dysuria. NERVOUS SYSTEM: No numbness or weakness. ALLERGY/IMMUNOLOGY: Asthma. MUSCULOSKELETAL: As mentioned earlier. HEMATOLOGY/ONCOLOGY: No history of anemia. ENDOCRINE: No history of diabetes or hypothyroidism. CONSTITUTIONAL: As mentioned earlier. DERMATOLOGY: Negative. RHEUMATOLOGY: Negative. PSYCHIATRY: As mentioned earlier. PHYSICAL EXAMINATION: The patient is alert and oriented x3. Pulse is 76, blood pressure 129/86, respirations 16, temperature 97.7, pulse ox 93% on room air. HEENT: Conjunctivae normal. NECK: No jugular venous distention. CARDIOVASCULAR: S1, S2 muffled. RESPIRATORY: Breath sounds diminished at the bases. A few scattered rhonchi. ABDOMEN: Soft. LEGS: Status post right knee arthroplasty. NERVOUS SYSTEM: Higher functions as mentioned. Moves all 4 limbs. No focal motor or sensory deficits. LYMPHATICS: No lymphadenopathy of the neck, axillae or groin. SKIN: No ulcer, rash or bleeding. JOINTS: No active deforming arthropathy. LABS: Labs at this time show the preop labs are hematology, coags, and chemistry within normal limits. ASSESSMENT: 1. Status post right total knee arthroplasty. 2. History of asthma, chronic obstructive pulmonary disease. 3. Gastroesophageal reflux disease. 4. Degenerative joint disease. 5. History of hypothyroidism. 6. History of degenerative joint disease. 7. History of plantar fasciitis. 8. History of anxiety. 9. Remote history of nicotine dependence. 10.FULL CODE. RECOMMENDATIONS AND DISCUSSION: This 60-year-old woman who presented with multiple medical issues, at this time I would recommend continue the home medications otherwise DVT prophylaxis, incentive spirometry and the patient may be asked to follow up with primary physician closely regarding the followup and management multiple medical issues, and we will follow the patient closely with you. Thank you Dr. Lechuga for letting us participate in the care of this patient. MMODL / IJN: [id number] /
[2020-02-13] MEDS: HYDROcodone/APAP 10-325MG 1 EACH TAB PO PRN ×2 (06:25→16:00)
[2020-02-13 08:38] LABS: Basophils % (A) 0 %; Eosinophils % (A) 0 %; HCT 38.1 % (34.0-46.0); HGB 12.2 gm/dL (11.4-16.0); Lymphocytes % (A) 7 %; MCH 29.2 pg (25.0-35.0); MCHC 32.1 g/dL (31.0-37.0); MCV 90.8 fL (80.0-100.0); Mean Platelet Volume 7.7; Monocytes # (A) 0.7 k/uL (0-1.0); Monocytes % (A) 5 %; Neutrophils # (A) 12.7 k/uL (1.3-7.7); Neutrophils % (A) 88 %; Platelet Count 232 k/uL (150-450); WBC 14.5 k/uL (3.8-10.6)
[2020-02-13] MEDS: ESCITALOPRAM 10 MG TAB PO SCH (09:09)
[2020-02-13] MEDS: CYANOCOBALAMIN 500 MCG TAB PO SCH (09:09)
[2020-02-13] MEDS: MULTIVITAMINS, THERA 1 EACH TAB PO SCH (09:09)
[2020-02-13] MEDS: PANTOPRAZOLE 40 MG TABLET PO SCH (09:09)
[2020-02-13] MEDS: MAGNESIUM OXIDE 400 MG TAB PO SCH ×2 (09:09→21:44)
[2020-02-13] MEDS: ASPIRIN 81 MG PO SCH ×2 (09:09→21:44)
--- NOTE | 2020-02-13 09:13 | P.PN ---
Progress Note - Text 02/12 702AM 60-year-old female status post total knee replacement. Patient has an On-Q pump for postop pain control with solution running at 8 mL an hour patient has a VAS of 4 and was treated with oral [place] last night. Plan to continue On-Q pump infusion
[2020-02-13] MEDS ORDERED: MULTIVITAMINS, THERA 1 EACH TAB PO SCH (12:00)
[2020-02-13] MEDS ORDERED: HYDROcodone/APAP 10-325MG 1 EACH TAB PO PRN (12:50)
[2020-02-13] MEDS: oxyCODONE ER 10 MG TAB.ER.12H PO SCH ×2 (13:30→21:44)
--- NOTE | 2020-02-13 16:15 | PN ---
PROGRESS NOTE DATE OF SERVICE: 02/13/2020 This is a 60-year-old woman who was admitted after right total knee arthroplasty, is improving significantly. No chest pain. No palpitations. No fever. PHYSICAL EXAMINATION: Alert and oriented x3. Pulse 70, blood pressure 140/80, respiration 16, temperature 97.7, pulse ox 94% on room air: HEENT: Conjunctivae normal. NECK: No jugular venous distension. CARDIOVASCULAR: S1, S2, muffled. RESPIRATIONS: Breath sounds diminished at the bases, no rhonchi, no crackles. ABDOMEN: Soft. LEGS: Status post surgery. NERVOUS SYSTEM: No focal deficits. LABS: WBC 14.2, hemoglobin 12.2. ASSESSMENT: 1. Status post right total knee arthroplasty. 2. History of asthma, COPD. 3. GERD. 4. DJD. 5. History of hypothyroidism. 6. History of plantar fasciitis. 7. History of anxiety. 8. Remote history of nicotine dependence. 9. FULL CODE. RECOMMENDATION: Recommend to continue current medical management and symptomatic treatment. Otherwise, at this time, I would recommend to continue the home medications and follow closely with the primary physician. Otherwise, rest of the recommendations per Orthopedic Surgery. Further recommendations to follow. MMODL / IJN: [id number] /
[2020-02-13] MEDS: SENNOSIDES-DOCUSATE SODIUM 1 EACH TAB PO SCH (21:44)
[2020-02-13] MEDS: LACTATED RINGERS 1,000 ML IV SCH (21:46)
[2020-02-14 02:09] VITALS: RESP 18
[2020-02-14] MEDS: HYDROcodone/APAP 10-325MG 1 EACH TAB PO PRN (03:33)
[2020-02-14] MEDS: LACTATED RINGERS 1,000 ML IV SCH ×2 (05:02→09:25)
[2020-02-14 07:25] VITALS: BP 160/83; PULSE 69; TEMP 98.4
--- NOTE | 2020-02-14 08:52 | P.DS ---
Providers Expected date of discharge: 02/14/20 Attending physician: Ted Lechuga Consults: 02/12/20 11:45 Consult Physician Routine Consulting Provider: Paul Finnegan Consult Reason/Comments: post op medical management Do you want consulting provider notified?: Yes Primary care physician: Diana Rashid - Discharge Diagnosis(es) (1) Osteoarthritis of right knee Current Visit: Yes Status: Acute (2) Status post right knee replacement Current Visit: Yes Status: Acute Hospital Course: This is a pleasant 60-year-old female last seen in our office with complaints of right knee pain. Patient has known history of degenerative arthritis of the right knee and presented to discuss options. After discussion and consideration, patient elected to proceed with a total knee arthroplasty of the right knee. The patient was seen preoperatively and medically cleared for surgery by her primary care physician. The patient was admitted to [facility] and underwent right total knee arthroplasty on 02/12/[address] Lechuga. The procedure was performed without complications or sequelae. The patient has done well postoperatively. The patient was seen and evaluated at bedside today and denies any new complaints. Pain is reasonably controlled. Dressing is clean dry and intact. Incision looks fine with no erythema or active drainage. Calf is soft and nontender. The patient has full foot and ankle motion without difficulty. Patient's right lower extremity is neurovascular intact. Patient is orthopedically stable for discharge to home today. Pertinent Studies: Laboratory Tests 02/13/20 07:28 WBC 14.5 H RBC 4.20 Hgb 12.2 Hct 38.1 Neutrophils # 12.7 H Patient Condition at Discharge: Stable Plan - Discharge Summary Discharge Rx Participant: Yes New Discharge Prescriptions: New Aspirin [Adult Low Dose Aspirin EC] 81 mg PO BID #60 tablet. HYDROcodone/APAP 10-325MG [[place] 10-325] 1 - 2 tab PO Q6HR PRN #32 tab PRN Reason: Pain No Action Pantoprazole [Protonix] 40 mg PO DAILY Escitalopram [Lexapro] 10 mg PO DAILY Cyanocobalamin (Vitamin B-12) [Vitamin B-12] 5,000 mcg PO DAILY Ergocalciferol [Vitamin D2] 50,000 unit PO WE Naproxen Sodium [Aleve] 220 mg PO BID Ferrous Sulfate [Feosol] 325 mg PO MOWE Ascorbic Acid [Vitamin C] 500 mg PO DAILY Multivit with Calcium,Iron,Min [Women's Multivitamin] 1 each PO DAILY Magnesium Oxide 400 mg PO BID Glucosam/Kyle-Msm1/C/Joshua/Bosw [Glucosamine-Chondroitin Tablet] 1 each PO BID Echinacea 400 mg PO DAILY Discharge Medication List Pantoprazole [Protonix] 40 mg PO DAILY 07/11/16 [History] Cyanocobalamin (Vitamin B-12) [Vitamin B-12] 5,000 mcg PO DAILY 04/03/19 [History] Escitalopram [Lexapro] 10 mg PO DAILY 04/03/19 [History] Ascorbic Acid [Vitamin C] 500 mg PO DAILY 02/06/20 [History] Echinacea 400 mg PO DAILY 02/06/20 [History] Ergocalciferol [Vitamin D2] 50,000 unit PO WE 02/06/20 [History] Ferrous Sulfate [Feosol] 325 mg PO MOWE 02/06/20 [History] Glucosam/Kyle-Msm1/C/Joshua/Bosw [Glucosamine-Chondroitin Tablet] 1 each PO BID 02/06/20 [History] Magnesium Oxide 400 mg PO BID 02/06/20 [History] Multivit with Calcium,Iron,Min [Women's Multivitamin] 1 each PO DAILY 02/06/20 [History] Naproxen Sodium [Aleve] 220 mg PO BID 02/06/20 [History] Aspirin [Adult Low Dose Aspirin EC] 81 mg PO BID #60 tablet. 02/13/20 [Rx] HYDROcodone/APAP 10-325MG [[place] 10-325] 1 - 2 tab PO Q6HR PRN #32 tab 02/14/20 [Rx] Follow up Appointment(s)/Referral(s): [facility], [NON-STAFF] - As Needed Ted Lechuga MD [STAFF PHYSICIAN] - 10 Days Activity/Diet/Wound Care/Special Instructions: Keep wound clean and dry Take meds as directed Follow-up with Dr. Lechuga in office Weight bear as tolerated May shower in 3 days if no bleeding Discharge Disposition: HOME WITH HOME HEALTH SERVICES
[2020-02-14] MEDS: PANTOPRAZOLE 40 MG TABLET PO SCH (09:24)
[2020-02-14] MEDS: ASPIRIN 81 MG PO SCH (09:24)
[2020-02-14] MEDS: CYANOCOBALAMIN 500 MCG TAB PO SCH (09:24)
[2020-02-14] MEDS: MAGNESIUM OXIDE 400 MG TAB PO SCH (09:24)
[2020-02-14] MEDS: MULTIVITAMINS, THERA 1 EACH TAB PO SCH (09:24)
[2020-02-14] MEDS: oxyCODONE ER 10 MG TAB.ER.12H PO SCH (09:25)
[2020-02-14] MEDS: ESCITALOPRAM 10 MG TAB PO SCH (09:25)
--- NOTE | 2020-02-14 17:17 | P.PN ---
Subjective Patient is clinically doing well patient has leukocytosis which is reactive in nature without any evidence of infection patient is otherwise clinically doing well pain is well-controlled is being discharged today. I did review discharge medication reconciliation. Constitutional: Denied any fatigue denied any fever. Cardio vascular: denied any chest pain, palpitations Gastrointestinal denied any nausea vomiting Pulmonary: Denied any shortness of breath cough Neurologic denied any new focal deficits All inpatient medications were reviewed and appropriate changes in these medications as dictated in the interval history and assessment and plan. Objective - Vital Signs Vital signs: Vital Signs Temp 98.4 F 02/14/20 07:24 Pulse 69 02/14/20 07:24 Resp 18 02/14/20 07:24 BP 160/83 02/14/20 07:24 Pulse Ox 94 L 02/14/20 07:24 Intake & Output 02/13/20 02/14/20 02/14/20 18:59 06:59 18:59 Intake Total 1020 Balance 1020 Intake: Oral 1020 Other: Voiding Method Toilet # Voids 2 2 - Exam PHYSICAL EXAMINATION: GENERAL: The patient is alert and oriented x3, not in any acute distress. Well developed, well nourished. HEENT: Pupils are round and equally reacting to light. EOMI. No scleral icterus. No conjunctival pallor. Normocephalic, atraumatic. No pharyngeal erythema. No thyromegaly. CARDIOVASCULAR: S1 and S2 present. No murmurs, rubs, or gallops. PULMONARY: Chest is clear to auscultation, no wheezing or crackles. ABDOMEN: Soft, nontender, nondistended, normoactive bowel sounds. No palpable organomegaly. MUSCULOSKELETAL: No joint swelling or deformity. EXTREMITIES: No cyanosis, clubbing, or pedal edema. NEUROLOGICAL: Gross neurological examination did not reveal any focal deficits. SKIN: No rashes. - Labs CBC & Chem 7: 02/13/20 07:28 Assessment and Plan Plan: -Leukocytosis without any evidence of infection no further intervention at this time -Right total knee arthroplasty status post surgery pain is well-controlled due to prophylaxis as per primary service patient is being discharged today. Patient is medically cleared to be discharged next and-COPD without any acute exacerbation -Hypothyroidism -Anxiety disorder -Gastroesophageal reflux disease For above-mentioned chronic medical problems patient can continue her home medications
[2020-02-16] MEDS ORDERED: FERROUS SULFATE 325 MG TAB PO SCH (09:00)
[2020-02-18] MEDS ORDERED: ERGOCALCIFEROL 50,000 UNIT CAP PO SCH (09:00)
== END 2020-02-14 15:20 | disposition home health service (06) ==
LOC: OR 09:52 → 4SSUR 15:19 → OR 02-14 15:20
PROVIDERS: ATTEND Orthopaedic Surgery Sports Medicine
DX: M17.31 Unilateral post-traumatic osteoarthritis, right knee (principal); D72.829 Elevated white blood cell count, unspecified; J44.9 Chronic obstructive pulmonary disease, unspecified; F41.9 Anxiety disorder, unspecified; K21.9 Gastro-esophageal reflux disease without esophagitis; F32.9 Major depressive disorder, single episode, unspecified; E03.8 Other specified hypothyroidism; Z79.899 Other long term (current) drug therapy; Z87.891 Personal history of nicotine dependence; Z90.710 Acquired absence of both cervix and uterus; Z98.890 Other specified postprocedural states; Z79.1 Long term (current) use of non-steroidal anti-inflammatories (NSAID)
CPT/HCPCS: 97110; 97161; 64448; 76942; 85025; 88300; 73560; 27447; C1776; C1713; J2250; J0171; J1100; J0690 ×3; J2405; J3010; J1885; J1170; J2795 ×2; J2704; J0735

== ENCOUNTER → 2021-06-03 | Outpatient (CLI) | payer OTHER ==
--- NOTE | 2021-06-03 09:38 | CT ---
EXAMINATION TYPE: CT sinus wo con DATE OF EXAM: 06/03/2021 COMPARISON: None HISTORY: 61-year-old female J32.9, Chronic sinusitis CT DLP: 630 mGycm Automated exposure control for dose reduction was used. TECHNIQUE: Noncontrast axial views of the paranasal sinuses were obtained. Coronal reconstructions pe rformed. FINDINGS: PARANASAL SINUSES: The frontal, ethmoid, maxillary and sphenoid sinuses are clear and well pneumatized. There is no mucosal thickening or air-fluid level. Reactive talisha- osteogenesis is not seen. There is no destruction of the osseous hubbard of the paranasal sinuses. THE NASAL CAVITY: The osteomeatal complexes are patent. There is leftward nasal septal deviation The imaged brain and orbits are normal in appearance. Visualized mastoid air cells and middle ear cavities are well pneumatized. Reformatted images confirm above findings. IMPRESSION: Leftward nasal septal deviation. Otherwise, no significant paranasal sinus disease identified.
== END | disposition home or self-care (01) ==
LOC: RADCTMAIN 07:44
PROVIDERS: ATTEND Otolaryngology
DX: J34.2 Deviated nasal septum (principal)
CPT/HCPCS: 70486

== ENCOUNTER 2022-04-05 06:36 | Day surgery (SDC) | payer BC, OTHER ==
[2022-04-03 16:09] VITALS: BMI 29.6
[~2022-04-05 06:36] MED LIST changes: -ACETAMINOPHEN TAB 500 MG TAB PO ONE; -GABAPENTIN 300 MG CAP PO ONE; +LACTATED RINGERS 1,000 ML IV SCH; +LIDOCAINE 1% (10MG/ML) FOR IV START INTRADERMA PRN; -MELOXICAM 7.5 MG TAB PO ONE; -ONDANSETRON 4 MG/2 ML VIAL IVP ONE; -ONDANSETRON 4 MG/2 ML VIAL IVP PRN; -TRANEXAMIC ACID 1,000 MG in SODIUM CHLORIDE 0.9% 100 ML IVPB ONE
[2022-04-05 07:05] VITALS: TEMP 96.9
[2022-04-05] MEDS ORDERED: PROPOFOL 10 MG/ML 20 ML VIAL IV ONE (07:55)
--- NOTE | 2022-04-05 08:16 | P.PCN ---
Date of Procedure: 04/05/22 Procedure(s) Performed: Brief history: Patient is a pleasant 62-year-old white female scheduled for an elective upper endoscopy as well as colonoscopy as a part of evaluation of GERD and chronic diarrhea for the last 5-6 years duration. Procedure performed: Esophagogastroduodenoscopy with biopsy Colonoscopy with biopsy Preoperative diagnosis: GERD Chronic diarrhea Anesthesia: [facility] [place] Procedure: After informed consent was obtained from the patient was brought into the endoscopy unit and IV sedation was administered by anesthesia under continuous monitoring. Initially upper endoscopy was done. The Olympus GF 160 video endoscope was inserted inserted into the mouth and esophagus intubated without a ny difficulty and was gradually advanced into the stomach and duodenum and carefully examined. The bulb and second part of the duodenum appeared normal. Abscesses were done from the duodenum to rule out celiac disease. The scope was then withdrawn into the stomach adequately insufflated with air and upon careful examination the antrum had mild gastritis and biopsies were done from this area. The body, cardia and fundus appeared normal. The scope was then withdrawn into the esophagus. Small sliding hiatal hernia noted. The GE junction was located at 40 cm to the incisors. It appeared regular with no erythema erosions or ulcerations. Rest of the esophagus appeared normal. Patient tolerated the procedure well. At this time the patient continued to remain sedation. Initial digital rectal examination was normal. Olympus CF 160 video colonoscope was then inserted into the rectum and gradually advanced to the cecum without any difficulty. Careful examination was performed as the scope was gradually being withdrawn. The prep was excellent. The cecum, had patchy areas of erythema with granularity and biopsies were done from this area.. There was mild granularity and erythema noted in the proximal ascending colon which was also biopsied. Rest of the ascending colon, transverse colon, descending colon, sigmoid colon and rectum appeared normal. Random biopsies were done from ascending and descending colon to rule out metastatic/collagenous colitis. Retroflexion was performed in the rectum and no lesions were noted. Patient tolerated the procedure well. Impression: 1. Upper endoscopy revealed mild antral gastritis and small hiatal hernia. 2. Colonoscopy revealed mild erythema with some granularity noted in the base of the cecum and proximal ascending colon suspicious for colitis and biopsies were done from this area. The rest of the colon appeared normal. Recommendations. Findings of this examination were discussed with the patient as well a her family. She was advised to follow with the biopsy results. She'll continue the current medications and follow antireflux measures. recommended repeat screening colonoscopy in 10 years.
[2022-04-05 08:23] VITALS: RESP 17
[2022-04-05 08:56] VITALS: BP 166/88; PULSE 68
== END 2022-04-05 09:10 | disposition home or self-care (01) ==
LOC: ORWHC2ENDO 06:36
PROVIDERS: ATTEND Internal Medicine Gastroenterology
DX: K29.50 Unspecified chronic gastritis without bleeding (principal); K21.9 Gastro-esophageal reflux disease without esophagitis; K52.9 Noninfective gastroenteritis and colitis, unspecified; J44.9 Chronic obstructive pulmonary disease, unspecified; Z87.891 Personal history of nicotine dependence; E07.9 Disorder of thyroid, unspecified; Z79.1 Long term (current) use of non-steroidal anti-inflammatories (NSAID); Z79.899 Other long term (current) drug therapy
CPT/HCPCS: 88305; 45380; 43239; J2704

== ENCOUNTER → 2024-11-12 | Outpatient (CLI) | payer MEDICARE ==
[2024-11-12 15:03] LABS: Basophils # (A) 0.05 X 10*3/uL (0.00-0.10); Basophils % (A) 0.7 %; Eosinophils # (A) 0.11 X 10*3/uL (0.04-0.35); Eosinophils % (A) 1.5 %; HCT 46.1 % (37.2-46.3); Lymphocytes # (A) 2.68 X 10*3/uL (0.90-5.00); Lymphocytes % (A) 36.9 %; MCH 29.2 pg (27.0-32.0); MCHC 32.5 g/dL (32.0-37.0); MCV 89.7 FL (80.0-97.0); Mean Platelet Volume 9.8 FL (9.5-12.2); Monocytes # (A) 0.69 X 10*3/uL (0.20-1.00); Monocytes % (A) 9.5 %; NRBC Per 100 WBC 0 X 10*3/uL (0.00-0.01); Neutrophils # (A) 3.72 X 10*3/uL (1.80-7.70); Neutrophils % (A) 51.1 %; Platelet Count 360 X 10*3/uL (140-440); RBC 5.14 X 10*6/uL (4.10-5.20); WBC 7.27 X 10*3/uL (4.50-10.00)
[2024-11-12 15:24] LABS: ALT 29 U/L (8-44); AST 30 U/L (13-35); Albumin 4.4 g/dL (3.8-4.9); Albumin/Globulin Ratio 1.47 Ratio (1.60-3.17); Alkaline Phosphatase 90 U/L (41-126); Blood Urea Nitrogen 7.8 mg/dL (9.0-27.0); Calcium 9.7 mg/dL (8.7-10.3); Carbon Dioxide 25.2 mmol/L (21.6-31.8); Chloride 103 mmol/L (96-109); Glucose 75 mg/dL (70-110); Potassium 4.4 mmol/L (3.5-5.5); Sodium 141 mmol/L (135-145); Total Bilirubin 0.3 mg/dL (0.3-1.2); Total Protein 7.4 g/dL (6.2-8.2)
== END | disposition home or self-care (01) ==
LOC: LABWHC1 11:38
PROVIDERS: ATTEND Nurse Practitioner Family
DX: K51.90 Ulcerative colitis, unspecified, without complications (principal)
CPT/HCPCS: 36415; 80053; 85025